=== PATIENT | male | born 1955 ===

== ENCOUNTER 2017-03-11 22:54 | Emergency (ER) | payer OTHER ==
[2017-03-11 23:18] VITALS: PULSE 71; RESP 17; TEMP 98.2; O2SAT 98
--- NOTE | 2017-03-12 00:32 | ED PDOC ---
HPI: Headache Time Seen by Provider: 03/11/17 23:45 Chief Complaint (Nursing): High Blood Pressure Chief Complaint (Provider): left sided headache and high bp History Per: Patient History/Exam Limitations: no limitations Onset/Duration Of Symptoms: Days Current Symptoms Are (Timing): Still Present Additional Complaint(s): 62yo male with PMHx including HTN, high cholesterol presents to the ED with c/o left sided headache and high bp since Saturday (2 days ago). Patient reports systolic bp has been in the 170s. Patient is concerned due to bp remaining high despite taking metoprolol. Denies chest pain, SOB, vomiting, dizziness. Past Medical History Reviewed: Historical Data, Nursing Documentation, Vital Signs Vital Signs: Last Vital Signs Temp 98.2 F 03/11/17 23:15 Pulse 71 03/11/17 23:15 Resp 17 03/11/17 23:15 BP 183/115 H 03/11/17 23:15 Pulse Ox 98 03/11/17 23:15 - Medical History PMH: HTN (no prescribed meds), Hypercholesterolemia Denies: HIV, Chronic Kidney Disease - Surgical History Surgical History: Hernia Repair - Family History Family History: States: No Known Family Hx - Social History Current smoker - smoking cessation education provided: No Alcohol: None Drugs: Denies - Home Medications Home Medications: Ambulatory Orders Medication Instructions Recorded Aspirin [Ecotrin] 81 mg PO DAILY #0 tabec 08/12/16 Atorvastatin [Lipitor] 20 mg PO HS #0 tab 08/12/16 Metoprolol Tartrate [Lopressor] 25 mg PO Q12 #0 tab 08/12/16 - Allergies Allergies/Adverse Reactions: Allergies Allergy/AdvReac Type Severity Reaction Status Date / Time Penicillins Allergy RASH Verified 08/11/16 18:12 Review of Systems ROS Statement: Except As Marked, All Systems Reviewed And Found Negative Cardiovascular: Positive for: Other (high bp ). Negative for: Chest Pain Respiratory: Negative for: Shortness of Breath Gastrointestinal: Negative for: Vomiting Neurological: Positive for: Headache. Negative for: Dizziness Physical Exam - Reviewed Nursing Documentation Reviewed: Yes Vital Signs Reviewed: Yes - Physical Exam Appears: Positive for: Well, No Acute Distress Head Exam: Positive for: ATRAUMATIC, NORMAL INSPECTION, NORMOCEPHALIC Skin: Positive for: Normal Color, Warm, Dry Eye Exam: Positive for: Normal appearance, EOMI, PERRL ENT: Positive for: Normal ENT Inspection Neck: Positive for: Normal, Painless ROM, Supple Cardiovascular/Chest: Positive for: Regular Rate, Rhythm. Negative for: Murmur , Tachycardia Respiratory: Positive for: Normal Breath Sounds. Negative for: Wheezing, Respiratory Distress Gastrointestinal/Abdominal: Positive for: Normal Exam, Soft. Negative for: Tenderness Back: Positive for: Normal Inspection. Negative for: L CVA Tenderness, R CVA Tenderness Extremity: Positive for: Normal ROM. 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 Negative for: Motor/Sensory Deficits, Aphasia, Facial Droop - ECG ECG: Positive for: Interpreted By Me, Viewed By Me ECG Rhythm: Positive for: Sinus Bradycardia (at 59 bpm, no ST elevations or depressions ) O2 Sat by Pulse Oximetry: 98 Pulse Ox Interpretation: Normal (RA) Medical Decision Making Medical Decision Makin: Impression: left sided headache and high bp Plan: CT head EKG Clonidine 0.2mg PO, Labetalol 100mg PO reassess 0146: CT head impression: No acute intracranial findings. Clinical correlation and followup is recommended as clinically warranted. 0200: Patient instructed to f/u w/ PCP in 1-2 days for further hypertension management. Repeat bp is 125/85. Explained results to patient and family who understand and agree. Instructed to return to the ED with any worsening or concerning symptoms. Scribe Attestation: Documented by Narciso Lopez acting as a scribe for Neida Kirby MD. Provider Scribe Attestation: All medical record entries made by the Scribe were at my direction and personally dictated by me. I have reviewed the chart and agree that the record accurately reflects my personal performance of the history, physical exam, medical decision making, and the department course for this patient. I have also personally directed, reviewed, and agree with the discharge instructions and disposition. Disposition - Clinical Impression Clinical Impression: Hypertension - Patient ED Disposition Is Patient to be Admitted: No Counseled Patient/Family Regarding: Studies Performed, Diagnosis, Need For Followup - Disposition Referrals: [facility] [Outside] [facility] [Outside] Disposition: Routine/Home Disposition Time: 01:45 Condition: IMPROVED Additional Instructions: follow up with your primary doctor in 1-2 days for further blood pressure management return to the ED with any worsening or concerning symptoms Instructions: Hypertension (ED) Print Language: KHMER
[2017-03-12 01:54] VITALS: BP 125/85
--- NOTE | 2017-03-12 09:22 | CT ---
PROCEDURE: CT HEAD WITHOUT CONTRAST. HISTORY: headache COMPARISON: 08/11/2016. TECHNIQUE: Axial computed tomography images were obtained through the head/brain without intravenous contrast. Radiation dose: Total exam DLP = 882.62 mGy-cm. This CT exam was performed using one or more of the following dose reduction techniques: Automated exposure control, adjustment of the mA and/or kV according to patient size, and/or use of iterative reconstruction technique. FINDINGS: HEMORRHAGE: No intracranial hemorrhage. BRAIN: No mass effect or edema. No atrophy or chronic microvascular ischemic changes. VENTRICLES: Unremarkable. No hydrocephalus. CALVARIUM: Unremarkable. PARANASAL SINUSES: Unremarkable as visualized. No significant inflammatory changes. MASTOID AIR CELLS: Unremarkable as visualized. No inflammatory changes. OTHER FINDINGS: None. IMPRESSION: No acute intracranial abnormalities. No significant findings to account for the clinical presentation. No significant interval change compared to the prior examination(s). Concordant results (preliminary interpretation) provided by [facility]. Procedure Completed: 01:25. Preliminary ([facility]) Report: Dictated and Authenticated: 01:46. Final Interpretation: 09:20. March 12, 2017.
--- NOTE | 2017-03-12 22:37 | CARD ---
APPROVED REPORT EKG Measurement Heart [id number] [id number] <Conclusion> Sinus bradycardia Otherwise normal ECG
== END 2017-03-12 02:34 | disposition home or self-care (01) ==
LOC: H.ER 22:54
DX: I10 Essential (primary) hypertension (principal); R51 Headache; Z79.82 Long term (current) use of aspirin; Z88.0 Allergy status to penicillin

== ENCOUNTER 2017-03-14 21:35 | Emergency (ER) | payer OTHER ==
[2017-03-14 21:57] VITALS: PULSE 76; RESP 20; TEMP 98.4; O2SAT 97
[2017-03-15 00:43] VITALS: BP 149/109
--- NOTE | 2017-03-15 06:30 | ED PDOC ---
HPI: Hypertension/Hypotension Time Seen by Provider: 03/15/17 00:07 Chief Complaint (Nursing): High Blood Pressure Chief Complaint (Provider): High Blood Pressure History Per: Patient History/Exam Limitations: no limitations Onset/Duration Of Symptoms: Days (x1day) Current Symptoms Are (Timing): Still Present Additional History Per: Patient Additional Complaint(s): David Bradley is a 62 year old male with a past medical history of HTN and hypercholesterolemia and a surgical history of a hernia repair who presents to the ED for a chief complaint of a headache along with high blood pressure onset x1day. Patient states he was seen in the ED 2 days ago for similar symptoms. Denies any nausea, vomiting, or visual disturbance. Patient take HTTZ 25mg and Toprol 100mg daily. Dr. Marshall is PCP. Past Medical History Reviewed: Historical Data, Nursing Documentation, Vital Signs Vital Signs: Last Vital Signs Temp 98.4 F 03/14/17 21:54 Pulse 76 03/14/17 21:54 Resp 20 03/14/17 21:54 BP 149/109 H 03/15/17 00:30 Pulse Ox 97 03/14/17 21:54 - Medical History PMH: HTN, Hypercholesterolemia Denies: HIV, Chronic Kidney Disease - Surgical History Surgical History: Hernia Repair - Family History Family History: States: No Known Family Hx - Home Medications Home Medications: Ambulatory Orders Medication Instructions Recorded Aspirin [Ecotrin] 81 mg PO DAILY #0 tabec 08/12/16 Atorvastatin [Lipitor] 20 mg PO HS #0 tab 08/12/16 Metoprolol Tartrate [Lopressor] 25 mg PO Q12 #0 tab 08/12/16 - Allergies Allergies/Adverse Reactions: Allergies Allergy/AdvReac Type Severity Reaction Status Date / Time Penicillins Allergy RASH Verified 08/11/16 18:12 Review of Systems ROS Statement: Except As Marked, All Systems Reviewed And Found Negative Constitutional: Negative for: Other (Headache) Cardiovascular: Negative for: Chest Pain Respiratory: Negative for: Cough, Shortness of Breath Gastrointestinal: Negative for: Vomiting Physical Exam - Reviewed Nursing Documentation Reviewed: Yes Vital Signs Reviewed: Yes - Physical Exam Appears: Positive for: Well, Non-toxic, No Acute Distress Head Exam: Positive for: ATRAUMATIC, NORMAL INSPECTION, NORMOCEPHALIC Skin: Positive for: Normal Color, Warm, Dry Eye Exam: Positive for: Normal appearance, EOMI, PERRL ENT: Positive for: Normal ENT Inspection Neck: Positive for: Normal, Painless ROM, Supple Cardiovascular/Chest: Positive for: Regular Rate, Rhythm. Negative for: Murmur , Tachycardia Respiratory: Positive for: Normal Breath Sounds. Negative for: Wheezing, Respiratory Distress Gastrointestinal/Abdominal: Positive for: Normal Exam, Soft. Negative for: Tenderness Male Genital Exam: Positive for: normal genitalia Back: Positive for: Normal Inspection Rectal: Positive for: Deferred Extremity: Positive for: Normal ROM Lymphatic: Positive for: Deferred Neurologic/Psych: Positive for: Alert, Oriented - ECG O2 Sat by Pulse Oximetry: 97 (RA) Pulse Ox Interpretation: Normal Medical Decision Making Medical Decision Makin: Initial Impression: Impression 62 year old male with headache setting of hypertension. Initial Plan: * CMP * CBC * PTT * Prothrombin Time * Heplock Insertion * Urinalysis Stat * Re-Eval Pt declines any testing as symptoms have resolved. He will continue current RX and maintain BP log to f/u with Dr Marshall in 2-3 days Dx Hypertension Stable Scribe~Attestation: Documented by Shelbi Caputo acting as a~scribe~for Lloyd Samano MD. ~ Provider~Scribe~Attestation: All medical record entries made by the~Scribe~were at my direction and personally dictated by me. I have reviewed the chart and agree that the record accurately reflects my personal performance of the history, physical exam, medical decision making, and the department course for this patient. I have also personally directed, reviewed, and agree with the discharge instructions and disposition. Disposition - Clinical Impression Clinical Impression: Hypertension - Disposition Referrals: Sumti Marshall MD [Primary Care Provider] - Disposition: Routine/Home Disposition Time: 01:00 Condition: STABLE Instructions: Chronic Hypertension (ED) Print Language: MALAGASY
== END 2017-03-15 00:45 | disposition home or self-care (01) ==
LOC: H.ER 21:35
DX: I10 Essential (primary) hypertension (principal)

== ENCOUNTER 2017-05-03 10:28 | Emergency (ER) | payer OTHER ==
[2017-05-03 10:32] VITALS: BP 159/88; PULSE 80; TEMP 97; BMI 32.5
[2017-05-03 10:40] VITALS: RESP 20; O2SAT 98
--- NOTE | 2017-05-03 10:49 | ED PDOC ---
Syncope/Near Syncope/Dizziness Time Seen by Provider: 05/03/17 10:40 Chief Complaint (Nursing): Dizziness/Lightheaded History Per: Patient Onset/Duration Of Symptoms: Hrs (1) Current Symptoms Are (Timing): Better Activity At Onset Of Symptoms: Other (working) Associated Symptoms Preceding Syncopal Episode: Lightheadedness Seizure Or Post-ictal Symptoms: None Possible Causative Factor(s): New Medications Fall Associated With With Symptoms: No Severity: Mild Pain Scale Rating Of: 1 Additional Complaint(s): Headache assoc with lightheadedness and palpitations while at work today. Denies weakness, parasthesias or LOC. Denies chest pain.Recent change in BP meds by PMD with elevated BP NIHSS Stroke Scale - How Severe is the Stroke Level of Consciousness: 0=Alert LOC to Questions: 0=Both comments correct LOC to commands: 0=Obeys both correctly Best Gaze: 0=Normal Visual: 0=No visual loss Facial: 0=Normal Motor Arm - Left: 0=No drift Motor Arm - Right: 0=No drift Motor Leg - Left: 0=No drift Motor Leg - Right: 0=No drift Limb Ataxia: 0=Absent Sensory: 0=Normal Best Language: 0=No aphasia Dysarthia: 0=Normal articulation Extinction & Inattention (Neglect): 0=Normal, no object Score: 0 Past Medical History Vital Signs: Last Vital Signs Temp 97 F L 05/03/17 10:31 Pulse 80 05/03/17 10:31 Resp 20 05/03/17 10:38 BP 159/88 H 05/03/17 10:31 Pulse Ox 98 05/03/17 10:38 - Medical History PMH: HTN, Hypercholesterolemia Denies: HIV, Chronic Kidney Disease - Surgical History Surgical History: Hernia Repair - Family History Family History: States: Unknown Family Hx - Home Medications Home Medications: Ambulatory Orders Medication Instructions Recorded Aspirin [Ecotrin] 81 mg PO DAILY #0 tabec 08/12/16 Atorvastatin [Lipitor] 20 mg PO HS #0 tab 08/12/16 Metoprolol Tartrate [Lopressor] 25 mg PO Q12 #0 tab 08/12/16 - Allergies Allergies/Adverse Reactions: Allergies Allergy/AdvReac Type Severity Reaction Status Date / Time Penicillins Allergy RASH Verified 05/03/17 10:38 Review of Systems ROS Statement: Except As Marked, All Systems Reviewed And Found Negative Cardiovascular: Positive for: Palpitations Neurological: Positive for: Headache, Dizziness Physical Exam - Reviewed Nursing Documentation Reviewed: Yes Vital Signs Reviewed: Yes - Physical Exam Appears: Positive for: Non-toxic, No Acute Distress Head Exam: Positive for: ATRAUMATIC, NORMAL INSPECTION, NORMOCEPHALIC Skin: Positive for: Normal Color, Warm, DRY Eye Exam: Positive for: EOMI, Normal appearance, PERRL ENT: Positive for: Normal ENT Inspection Neck: Positive for: Normal, Painless ROM Cardiovascular/Chest: Positive for: Regular Rate, Rhythm Respiratory: Positive for: CNT, Normal Breath Sounds Gastrointestinal/Abdominal: Positive for: Normal Exam, Bowel Sounds, Soft Back: Positive for: Normal Inspection Extremity: Positive for: Normal ROM Neurologic/Psych: Positive for: Alert, Oriented - Laboratory Results Result Diagrams: 05/03/17 11:24 05/03/17 11:24 - ECG O2 Sat by Pulse Oximetry: 98 Disposition - Clinical Impression Clinical Impression: Hypertension - Patient ED Disposition Is Patient to be Admitted: No - Disposition Referrals: Sumit Marshall MD [Family Provider] - Disposition: Routine/Home Disposition Time: 12:10 Condition: FAIR Instructions: Hypertension (ED)
[2017-05-03 11:36] LABS: BASO # 0.1 K/uL (0.0-0.2); BASO % 0.8 % (0.0-2.0); EOS # 0.7 K/uL (0.0-0.7); EOS % 12.1 % (0.0-4.0); HEMOGLOBIN 15.4 g/dL (12.0-18.0); LYMPH # 1.9 K/uL (1.0-4.3); LYMPH % 30.9 % (20.0-40.0); MEAN CELL VOLUME 93.7 fl (80.0-94.0); MEAN CORPUSCULAR HEMOGLOBIN 30.9 pg (27.0-31.0); MONO # 0.3 K/uL (0.0-0.8); MONO % 5.7 % (0.0-10.0); NEUT # 3.1 K/uL (1.8-7.0); NEUT % 50.5 % (50.0-75.0); RBC 4.99 Mil/uL (4.40-5.90); RED CELL DISTRIBUTION WIDTH 13.2 % (11.5-14.5); WHITE BLOOD COUNT 6.1 K/uL (4.8-10.8)
--- NOTE | 2017-05-03 11:52 | CT ---
PROCEDURE: CT HEAD WITHOUT CONTRAST. HISTORY: r/o bleed COMPARISON: 03/12/2017 TECHNIQUE: Axial computed tomography images were obtained through the head/brain without intravenous contrast. Radiation dose: Total exam DLP = 854.63 mGy-cm. This CT exam was performed using one or more of the following dose reduction techniques: Automated exposure control, adjustment of the mA and/or kV according to patient size, and/or use of iterative reconstruction technique. FINDINGS: HEMORRHAGE: No intracranial hemorrhage. BRAIN: Fields-white matter differentiation is preserved. There is no mass, mass effect or abnormal extra-axial fluid collection. There is no territorial infarction. There is normal density in the larger dural venous sinuses. VENTRICLES: There is mild global parenchymal volume loss and proportionate enlargement of the ventricles and cortical sulci. CALVARIUM: There is no calvarial fracture or extracranial soft tissue swelling. PARANASAL SINUSES: Predominantly clear. MASTOID AIR CELLS: Predominantly clear. OTHER FINDINGS: None. IMPRESSION: No acute intracranial abnormality. Mild age-related global parenchymal volume loss.
[2017-05-03 11:55] LABS: ALB/GLOB RATIO 1.5 (1.0-2.1); ALBUMIN 4.5 g/dL (3.5-5.0); ALT/SGPT 58 U/L (21-72); AST/SGOT 32 U/L (17-59); BLOOD UREA NITROGEN 17 mg/dl (9-20); CALCIUM 9.2 mg/dL (8.4-10.2); GFR AFRICAN-AMERICAN > 60; GFR NON-AFRICAN AMERICAN > 60
--- NOTE | 2017-05-03 18:28 | CARD ---
APPROVED REPORT EKG Measurement Heart [id number] <Conclusion> Normal sinus rhythm Normal ECG
== END 2017-05-03 12:47 | disposition home or self-care (01) ==
LOC: H.ER 10:28
DX: I10 Essential (primary) hypertension (principal); R42 Dizziness and giddiness; E78.00 Pure hypercholesterolemia, unspecified; Z79.82 Long term (current) use of aspirin; Z88.0 Allergy status to penicillin

== ENCOUNTER 2017-08-26 19:59 | Observation (INO) | payer OTHER ==
[2017-08-26 19:59] VITALS: BMI 32.5
[2017-08-26 21:38] LABS: BASO # 0.1 K/uL (0.0-0.2); EOS # 0.6 K/uL (0.0-0.7); EOS % 8.2 % (0.0-4.0); HEMATOCRIT 43.9 % (35.0-51.0); LYMPH # 1.4 K/uL (1.0-4.3); LYMPH % 17.9 % (20.0-40.0); MEAN CELL VOLUME 92.6 fl (80.0-94.0); MEAN CORPUSCULAR HGB CONC 33.5 g/dL (33.0-37.0); MEAN PLATELET VOLUME 8.3 fl (7.2-11.7); MONO # 0.6 K/uL (0.0-0.8); MONO % 7.3 % (0.0-10.0); NEUT # 5.2 K/uL (1.8-7.0); NEUT % 65.6 % (50.0-75.0); RED CELL DISTRIBUTION WIDTH 13.8 % (11.5-14.5); WHITE BLOOD COUNT 7.9 K/uL (4.8-10.8)
[2017-08-26 21:50] LABS: ALB/GLOB RATIO 1.3 (1.0-2.1); ALKALINE PHOSPHATASE 67 U/L (38-126); ALT/SGPT 36 U/L (21-72); AST/SGOT 24 U/L (17-59); BILIRUBIN,TOTAL 0.2 mg/dl (0.2-1.3); BLOOD UREA NITROGEN 19 mg/dl (9-20); CALCIUM 8.9 mg/dL (8.4-10.2); CARBON DIOXIDE 27 mmol/L (22-30); CHLORIDE 103 mmol/L (98-107); GFR AFRICAN-AMERICAN > 60; GLUCOSE,RANDOM 115 mg/dL (75-110); POTASSIUM 3.7 MMOL/L (3.6-5.0); SODIUM 137 mmol/l (132-148); TOTAL PROTEIN 7.2 G/DL (6.3-8.2)
[2017-08-26 22:03] LABS: URINE BILIRUBIN NEGATIVE (NEGATIVE); URINE BLOOD NEGATIVE (NEGATIVE); URINE COLOR STRAW (YELLOW); URINE GLUCOSE (UA) NEG (Normal); URINE KETONE NEGATIVE (NEGATIVE); URINE LEUKOCYTE ESTERASE NEG Leu/uL (Negative); URINE PROTEIN NEGATIVE (NEGATIVE); URINE UROBILINOGEN 0.2-1.0 mg/dL (0.2-1.0); WBC URINE < 1 /hpf (0-5)
[2017-08-26 22:04] LABS: RBC URINE 1 /hpf (0-3)
[2017-08-26 22:07] LABS: PARTIAL THROMBOPLASTIN TIME 31.9 Seconds (25.6-37.1)
--- NOTE | 2017-08-26 22:25 | ED PDOC ---
HPI: Hypertension/Hypotension Time Seen by Provider: 08/26/17 20:36 Chief Complaint (Nursing): High Blood Pressure Chief Complaint (Provider): High blood pressure History Per: Patient History/Exam Limitations: no limitations Associated Symptoms: Chest Pain, Dizziness. denies: Dyspnea, Blurred Vision, Focal Weakness, Headache Quality Of Symptoms: denies: Asymptomatic, Rapid Heart Rate, Irregular Heart Rate, Extra Beats, No Rhythm Irregularity Exacerbating Factor(s): Pos: None Additional Complaint(s): 62 yo M in ED for eval of high blood pressure dizziness (feels like the room is spinning with acute onsent today) and chest pain left sided intermittent lasting 1 min feels like a spasm without radiation to arm, neck x 1 week. denies diaphoresis, vision changes or abd pain. Past Medical History Reviewed: Historical Data, Nursing Documentation, Vital Signs Vital Signs: Last Vital Signs Temp 96.5 F L 08/26/17 20:24 Pulse 85 08/26/17 20:24 Resp 16 08/26/17 20:24 BP 174/95 H 08/26/17 20:24 Pulse Ox 96 08/26/17 20:24 - Medical History PMH: HTN, Hypercholesterolemia Denies: HIV, Chronic Kidney Disease - Surgical History Surgical History: Hernia Repair - Family History Family History: States: Unknown Family Hx - Home Medications Home Medications: Ambulatory Orders Medication Instructions Recorded Aspirin [Ecotrin] 81 mg PO DAILY #0 tabec 08/12/16 Atorvastatin [Lipitor] 20 mg PO HS #0 tab 08/12/16 Metoprolol Tartrate [Lopressor] 25 mg PO Q12 #0 tab 08/12/16 - Allergies Allergies/Adverse Reactions: Allergies Allergy/AdvReac Type Severity Reaction Status Date / Time Penicillins Allergy RASH Verified 08/26/17 20:24 Review of Systems ROS Statement: Except As Marked, All Systems Reviewed And Found Negative Constitutional: Negative for: Fever, Chills Cardiovascular: Positive for: Chest Pain Musculoskeletal: Negative for: Shoulder Pain Neurological: Positive for: Dizziness Physical Exam - Reviewed Nursing Documentation Reviewed: Yes Vital Signs Reviewed: Yes - Physical Exam Appears: Positive for: Well, Non-toxic, No Acute Distress Skin: Positive for: Normal Color, Warm, DRY Eye Exam: Positive for: EOMI, Normal appearance, PERRL Cardiovascular/Chest: Positive for: Regular Rate, Rhythm. Negative for: Chest Non Tender, Murmur, Bradycardia, Tachycardia Respiratory: Positive for: CNT, Normal Breath Sounds Gastrointestinal/Abdominal: Positive for: Normal Exam, Bowel Sounds, Soft. Negative for: Tenderness Back: Positive for: Normal Inspection Extremity: Positive for: Normal ROM Neurologic/Psych: Positive for: Alert, Oriented - Laboratory Results Result Diagrams: 08/26/17 21:32 08/26/17 21:32 - ECG O2 Sat by Pulse Oximetry: 96 - Radiology X-Ray: Interpreted by Me X-Ray Interpretation: No Acute Disease - Progress ED Course And Treament: Orders Category Date Time Status ELECTROCARDIOGRAM Stat Cardiology 08/26/17 21:14 Ordered B-TYPE NATRIURETIC PEPTIDE Stat Chem 08/26/17 21:32 Completed COMP METABOLIC PANEL Stat Chem 08/26/17 21:32 Completed TROPONIN I Stat Chem 08/26/17 21:32 Completed EKG-ED [EDNURTX] STAT ED Care 08/26/17 21:15 Active CHEST TWO VIEWS (PA/LAT) [RAD] Stat Exams 08/26/17 21:15 Ordered CBC (WITH DIFFERENTIAL) Stat SKYLA 08/26/17 21:32 Completed PARTIAL THROMBOPLASTIN TIME [COAG] Stat SKYLA 08/26/17 21:32 Completed PROTHROMBIN TIME [COAG] Stat SKYLA 08/26/17 21:32 Completed Famotidine [Pepcid] Med 08/26/17 21:49 Discontinued 40 mg .ROUTE .STK-MED ONE Famotidine [Pepcid] Med 08/26/17 21:14 Discontinued 40 mg IVP 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 08/26/17 21:14 Active IV Insertion (Saline Lock) ONCE NURSING 08/26/17 21:14 Active URINALYSIS Stat URINALYSIS 08/26/17 21:45 Completed 08/26/17 08/26/17 08/26/17 21:45 21:32 21:32 WBC RBC Hgb Hct MCV MCH MCHC RDW Plt Count MPV Neut % (Auto) Lymph % (Auto) [place] % (Auto) Eos % (Auto) Baso % (Auto) Neut # Lymph # [place] # Eos # Baso # PT 10.5 INR 0.9 APTT 31.9 Sodium 137 Potassium 3.7 Chloride 103 Carbon Dioxide 27 Anion Gap 10 BUN 19 Creatinine 1.1 Est GFR ( Amer) > 60 Est GFR (Non-Af Amer) > 60 Random Glucose 115 H Calcium 8.9 Total Bilirubin 0.2 AST 24 ALT 36 Alkaline Phosphatase 67 Troponin I < 0.0120 NT-Pro-B Natriuret Pep 71.8 Total Protein 7.2 Albumin 4.1 Globulin 3.1 Albumin/Globulin Ratio 1.3 Urine Color Straw Urine Clarity Clear Urine pH 6.0 Ur Specific [place] 1.009 Urine Protein Negative Urine Glucose (UA) Neg Urine Ketones Negative Urine Blood Negative Urine Nitrate Negative Urine Bilirubin Negative Urine Urobilinogen 0.2-1.0 Ur Leukocyte Esterase Neg Urine RBC (Auto) 1 Urine Microscopic WBC < 1 08/26/17 21:32 WBC 7.9 RBC 4.74 Hgb 14.7 Hct 43.9 MCV 92.6 MCH 31.0 MCHC 33.5 RDW 13.8 Plt Count 222 MPV 8.3 Neut % (Auto) 65.6 Lymph % (Auto) 17.9 L [place] % (Auto) 7.3 Eos % (Auto) 8.2 H Baso % (Auto) 1.0 Neut # 5.2 Lymph # 1.4 [place] # 0.6 Eos # 0.6 Baso # 0.1 PT INR APTT Sodium Potassium Chloride Carbon Dioxide Anion Gap BUN Creatinine Est GFR ( Amer) Est GFR (Non-Af Amer) Random Glucose Calcium Total Bilirubin AST ALT Alkaline Phosphatase Troponin I NT-Pro-B Natriuret Pep Total Protein Albumin Globulin Albumin/Globulin Ratio Urine Color Urine Clarity Urine pH Ur Specific [place] Urine Protein Urine Glucose (UA) Urine Ketones Urine Blood Urine Nitrate Urine Bilirubin Urine Urobilinogen Ur Leukocyte Esterase Urine RBC (Auto) Urine Microscopic WBC Medical Decision Making Medical Decision Making: PMD:MD dg PT will be admitted for Chest pain observation for repeat labs in the AM-pt has risk factors and symptomatic/ Hypertensive Disposition - Clinical Impression Clinical Impression: Chest pain - Patient ED Disposition Is Patient to be Admitted: Yes - Disposition Disposition Time: 22:43 Condition: FAIR Forms: [employer] (Eritrean) - Pt Status Changed To: Hospital Disposition Of: Observation
--- NOTE | 2017-08-26 22:52 | CP.PCM.HP ---
<Krystal Thomas - Last Filed: 08/26/17 23:15> History of Present Illness - History of Present Illness History of Present Illness: 62yo M with PMHx HTN, HLD, CVA admitted for chest pain. Chest pain x3 day, not dull/sharp, left chest wall, intermittent, no radiation, nothing makes it better /worse, a/w elevated BP reading at home today. Denies fever/chills, nausea, vomiting, change of vision, dizziness, lightheadedness, SOB, HOP[place], abdominal pain. FHx significant for CAD. ECHO 03/29/15 LVEF 55-60%, trace MR Stress test 03/31/15 WNL PMHx: HTN, HLD, CVA Meds: Lipitor-HCTZ 10-12.5, atorvastatin 20, ASA 81 Allergies: PCN - rash/GI distress Family Hx: Mother HTN, Father CAD with pacemaker Surgeries: B/L inguinal hernia repair and hiatal/ventral hernia repair Social Hx: Former smoker 10 pack yrs, quit >20 yrs ago. EtOH occasionally, denies drug use PMD: Dr. Mujica ED course CBC, CMP, troponin, proBNP, UA, PT/PTT CXR EKG pepcid 40 IV Present on Admission - Present on Admission Any Indicators Present on Admission: No Review of Systems - Review of Systems All systems: reviewed and no additional remarkable complaints except - Cardiovascular Cardiovascular: Chest Pain Past Patient History - Past Medical History & Family History Past Medical History?: Yes - Past Social History Smoking Status: Former Smoker - CARDIAC Hx Hypercholesterolemia: Yes Hx Hypertension: Yes - PULMONARY Hx Respiratory Disorders: No - NEUROLOGICAL Hx Neurological Disorder: No - HEENT Hx HEENT Problems: No - RENAL Hx Chronic Kidney Disease: No - ENDOCRINE/METABOLIC Hx Endocrine Disorders: No - HEMATOLOGICAL/ONCOLOGICAL Hx Human Immunodeficiency Virus (HIV): No - INTEGUMENTARY Hx Dermatological Problems: No - MUSCULOSKELETAL/RHEUMATOLOGICAL Hx Musculoskeletal Disorders: No Hx Falls: No - GASTROINTESTINAL Hx Gastrointestinal Disorders: No - GENITOURINARY/GYNECOLOGICAL Hx Genitourinary Disorders: No - PSYCHIATRIC Hx Psychophysiologic Disorder: No Hx Substance Use: No - SURGICAL HISTORY Hx Surgeries: Yes Hx Herniorrhaphy: Yes (ventral x1 and B/L inguinal hernia repairs) - ANESTHESIA Hx Anesthesia: Yes Meds Allergies/Adverse Reactions: Allergies Allergy/AdvReac Type Severity Reaction Status Date / Time Penicillins Allergy RASH Verified 10/30/17 20:24 Physical Exam - Constitutional Appears: Non-toxic, No Acute Distress - Head Exam Head Exam: ATRAUMATIC, NORMOCEPHALIC - Eye Exam Eye Exam: Normal appearance - ENT Exam ENT Exam: Mucous Membranes Moist - Neck Exam Neck exam: Positive for: Full Rom, Normal Inspection - Respiratory Exam Respiratory Exam: Clear to Auscultation Bilateral, NORMAL BREATHING PATTERN - Cardiovascular Exam Cardiovascular Exam: REGULAR RHYTHM. absent: Systolic Murmur - GI/Abdominal Exam GI & Abdominal Exam: Normal Bowel Sounds, Soft. absent: Tenderness - Extremities Exam Extremities exam: Positive for: normal inspection. Negative for: pedal edema - Back Exam Back exam: NORMAL INSPECTION. absent: vertebral tenderness - Neurological Exam Neurological exam: Alert, Oriented x3 - Skin Skin Exam: Dry, Warm Results - Vital Signs Recent Vital Signs: Last Vital Signs Temp 96.5 F L 08/26/17 20:24 Pulse 85 08/26/17 20:24 Resp 16 08/26/17 20:24 BP 174/95 H 08/26/17 20:24 Pulse Ox 96 08/26/17 22:43 - Labs Result Diagrams: 08/26/17 21:32 08/26/17 21:32 Labs: Laboratory Results - last 24 hr 08/26/17 08/26/17 08/26/17 21:32 21:32 21:32 WBC 7.9 RBC 4.74 Hgb 14.7 Hct 43.9 MCV 92.6 MCH 31.0 MCHC 33.5 RDW 13.8 Plt Count 222 MPV 8.3 Neut % (Auto) 65.6 Lymph % (Auto) 17.9 L [place] % (Auto) 7.3 Eos % (Auto) 8.2 H Baso % (Auto) 1.0 Neut # 5.2 Lymph # 1.4 [place] # 0.6 Eos # 0.6 Baso # 0.1 PT 10.5 INR 0.9 APTT 31.9 Sodium 137 Potassium 3.7 Chloride 103 Carbon Dioxide 27 Anion Gap 10 BUN 19 Creatinine 1.1 Est GFR ( Amer) > 60 Est GFR (Non-Af Amer) > 60 Random Glucose 115 H Calcium 8.9 Total Bilirubin 0.2 AST 24 ALT 36 Alkaline Phosphatase 67 Troponin I < 0.0120 NT-Pro-B Natriuret Pep 71.8 Total Protein 7.2 Albumin 4.1 Globulin 3.1 Albumin/Globulin Ratio 1.3 Urine Color Urine Clarity Urine pH Ur Specific [place] Urine Protein Urine Glucose (UA) Urine Ketones Urine Blood Urine Nitrate Urine Bilirubin Urine Urobilinogen Ur Leukocyte Esterase Urine RBC (Auto) Urine Microscopic WBC 08/26/17 21:45 WBC RBC Hgb Hct MCV MCH MCHC RDW Plt Count MPV Neut % (Auto) Lymph % (Auto) [place] % (Auto) Eos % (Auto) Baso % (Auto) Neut # Lymph # [place] # Eos # Baso # PT INR APTT Sodium Potassium Chloride Carbon Dioxide Anion Gap BUN Creatinine Est GFR ( Amer) Est GFR (Non-Af Amer) Random Glucose Calcium Total Bilirubin AST ALT Alkaline Phosphatase Troponin I NT-Pro-B Natriuret Pep Total Protein Albumin Globulin Albumin/Globulin Ratio Urine Color Straw Urine Clarity Clear Urine pH 6.0 Ur Specific [place] 1.009 Urine Protein Negative Urine Glucose (UA) Neg Urine Ketones Negative Urine Blood Negative Urine Nitrate Negative Urine Bilirubin Negative Urine Urobilinogen 0.2-1.0 Ur Leukocyte Esterase Neg Urine RBC (Auto) 1 Urine Microscopic WBC < 1 Assessment & Plan - Assessment and Plan (Free Text) Assessment: 62yo M with PMHx HTN, HLD, CVA admitted for chest pain. chest pain -r/o ACS -trend troponin -pain control, nitro SL -O2 prn -ASA HTN -c/w home med HLD -c/w home med DVT ppx -lovenox Decision To Admit - Pt Status Changed To: Hospital Disposition Of: Observation - . Bed Request Type: Telemetry Admitting Physician: Sumit Mujica <Sumit Mujica - Last Filed: 08/28/17 07:03> Results - Vital Signs Recent Vital Signs: Last Vital Signs Temp 98.2 F 08/27/17 15:37 Pulse 70 08/27/17 15:37 Resp 18 08/27/17 15:37 BP 123/73 08/27/17 15:37 Pulse Ox 95 08/27/17 15:37 - Labs Result Diagrams: 08/26/17 21:32 08/27/17 04:20 Labs: Laboratory Results - last 24 hr 08/27/17 08/27/17 08/27/17 04:20 04:20 14:10 Sodium 138 Potassium 3.7 Chloride 104 Carbon Dioxide 26 Anion Gap 12 BUN 17 Creatinine 1.0 Est GFR ( Amer) > 60 Est GFR (Non-Af Amer) > 60 Random Glucose 120 H Hemoglobin A1c 7.2 H Calcium 8.8 Total Bilirubin 0.5 AST 24 ALT 36 Alkaline Phosphatase 55 Troponin I < 0.0120 < 0.0120 Total Protein 6.9 Albumin 3.8 Globulin 3.0 Albumin/Globulin Ratio 1.3 Triglycerides 95 D Cholesterol 184 LDL Cholesterol Direct 111 HDL Cholesterol 48 TSH 3rd Generation 2.08 Attending/Attestation - Attestation I have personally seen and examined this patient.: Yes I have fully participated in the care of the patient.: Yes I have reviewed all pertinent clinical information: Yes
[2017-08-27 01:23] VITALS: RESP 18
--- NOTE | 2017-08-27 07:06 | RAD ---
HISTORY: Chest pain and hypertension COMPARISON: 08/11/2016 TECHNIQUE: Chest PA and lateral FINDINGS: LUNGS: No active pulmonary disease. PLEURA: No significant pleural effusion identified. No pneumothorax apparent. CARDIOVASCULAR: No radiographic findings to suggest acute or significant cardiovascular disease. OSSEOUS STRUCTURES: No significant abnormalities. VISUALIZED UPPER ABDOMEN: Normal. OTHER FINDINGS: None. IMPRESSION: No active disease. No significant interval change compared to the prior examination(s). Please note: No preliminary interpretation of this examination rendered by emergency department personnel (Physician and/or PA declined to provide preliminary report of their findings/ observations).
[2017-08-27 07:24] LABS: ALB/GLOB RATIO 1.3 (1.0-2.1); ALKALINE PHOSPHATASE 55 U/L (38-126); ALT/SGPT 36 U/L (21-72); AST/SGOT 24 U/L (17-59); BILIRUBIN,TOTAL 0.5 mg/dl (0.2-1.3); BLOOD UREA NITROGEN 17 mg/dl (9-20); CALCIUM 8.8 mg/dL (8.4-10.2); CARBON DIOXIDE 26 mmol/L (22-30); CHLORIDE 104 mmol/L (98-107); CHOLESTEROL 184 mg/dL (0-199); GFR AFRICAN-AMERICAN > 60; GLUCOSE,RANDOM 120 mg/dL (75-110); POTASSIUM 3.7 MMOL/L (3.6-5.0); SODIUM 138 mmol/l (132-148); TOTAL PROTEIN 6.9 G/DL (6.3-8.2)
[2017-08-27 07:44] LABS: THYROID STIMULATING HORMONE 2.08 mIU/ML (0.46-4.68)
[2017-08-27] MEDS ORDERED: Influenza Vaccine 18yr & older 0.5 ML/45 MCG SYR IM ONE (09:00)
[2017-08-27] MEDS ORDERED: Pneumococcal 23-Valent Vaccine IM ONE (09:00)
[2017-08-27] MEDS ORDERED: Enoxaparin 40 mg Syringe SC SCH (09:00)
--- NOTE | 2017-08-27 10:51 | CARD ---
APPROVED REPORT EKG Measurement Heart [id number] CT 142P44 [id number] <Conclusion> Normal sinus rhythm Normal ECG
[2017-08-27 15:38] VITALS: BP 123/73; PULSE 70; TEMP 98.2; O2SAT 95
--- NOTE | 2017-08-27 15:50 | CP.PCM.DIS ---
<Saturnino Becerril - Last Filed: 08/27/17 15:48> Provider - Provider Date of Admission: 08/26/17 23:09 Attending physician: Sumit Marshall MD Time Spent in preparation of Discharge (in minutes): 35 Diagnosis - Discharge Diagnosis (1) Atypical chest pain Status: Acute Hospital Course - Lab Results Lab Results: Most Recent Lab Values WBC 7.9 K/uL (4.8-10.8) 08/26/17 21: RBC 4.74 Mil/uL (4.40-5.90) 08/26/17 21:32 Hgb 14.7 g/dL (12.0-18.0) 08/26/17 21:32 Hct 43.9 % (35.0-51.0) 08/26/17 21:32 MCV 92.6 fl (80.0-94.0) 08/26/17 21:32 MCH 31.0 pg (27.0-31.0) 08/26/17:32 MCHC 33.5 g/dL (33.0-37.0) 08/26/17 21:32 RDW 13.8 % (11.5-14.5) 08/26/17 21:32 Plt Count 222 K/uL (130-400) 08/26/17 21:32 MPV 8.3 fl (7.2-11.7) 08/26/17 21:32 Neut % (Auto) 65.6 % (50.0-75.0) 08/26/17 21:32 Lymph % (Auto) 17.9 % (20.0-40.0) L 08/26/17 21:32 [place] % (Auto) 7.3 % (0.0-10.0) 08/26/17 21:32 Eos % (Auto) 8.2 % (0.0-4.0) H 08/26/17:32 Baso % (Auto) 1.0 % (0.0-2.0) 08/26/17 21:32 Neut # 5.2 K/uL (1.8-7.0) 08/26/17 21:32 Lymph # 1.4 K/uL (1.0-4.3) 08/26/17 21:32 [place] # 0.6 K/uL (0.0-0.8) 08/26/17 21:32 Eos # 0.6 K/uL (0.0-0.7) 08/26/17 21:32 Baso # 0.1 K/uL (0.0-0.2) 08/26/17 21:32 PT 10.5 Seconds (9.8-13.1) 08/26/17 21:32 INR 0.9 (0.9-1.2) 08/26/17 21:32 APTT 31.9 Seconds (25.6-37.1) 08/26/17 21:32 Sodium 138 mmol/l (132-148) 08/27/17 04:20 Potassium 3.7 MMOL/L (3.6-5.0) 08/27/17 04:20 Chloride 104 mmol/L (98-107) 08/27/17 04:20 Carbon Dioxide 26 mmol/L (22-30) 08/27/17 04:20 Anion Gap 12 (10-20) 08/27/17 04:20 BUN 17 mg/dl (9-20) 08/27/17 04:20 Creatinine 1.0 mg/dL (0.8-1.5) 08/27/17 04:20 Est GFR ( Amer) > 60 08/27/17 04:20 Est GFR (Non-Af Amer) > 60 08/27/17 04:20 Random Glucose 120 mg/dL (75-110) H 08/27/17 04:20 Hemoglobin A1c 7.2 % (4.2-6.5) H 08/27/17 04:20 Calcium 8.8 mg/dL (8.4-10.2) 08/27/17 04:20 Total Bilirubin 0.5 mg/dl (0.2-1.3) 08/27/17 04:20 AST 24 U/L (17-59) 08/27/17 04:20 ALT 36 U/L (21-72) 08/27/17 04:20 Alkaline Phosphatase 55 U/L (38-126) 08/27/17 04:20 Troponin I < 0.0120 ng/mL (0.00-0.120) 08/27/17 14:10 NT-Pro-B Natriuret Pep 71.8 pg/ml (0-900) 08/26/17 21:32 Total Protein 6.9 G/DL (6.3-8.2) 08/27/17 04:20 Albumin 3.8 g/dL (3.5-5.0) 08/27/17 04:20 Globulin 3.0 gm/dL (2.2-3.9) 08/27/17 04:20 Albumin/Globulin Ratio 1.3 (1.0-2.1) 08/27/17 04:20 Triglycerides 95 mg/DL (0-149) D 08/27/17 04:20 Cholesterol 184 mg/dL (0-199) 08/27/17 04:20 LDL Cholesterol Direct 111 mg/dL (0-129) 08/27/17 04:20 HDL Cholesterol 48 MG/DL (30-70) 08/27/17 04:20 TSH 3rd Generation 2.08 mIU/ML (0.46-4.68) 08/27/17 04:20 Urine Color Straw (YELLOW) 08/26/17 21:45 Urine Clarity Clear (Clear) 08/26/17 21:45 Urine pH 6.0 (5.0-8.0) 08/26/17 21:45 Ur Specific [place] 1.009 (1.003-1.030) 08/26/17 21:45 Urine Protein Negative mg/dL (NEGATIVE) 08/26/17 21:45 Urine Glucose (UA) Neg mg/dL (Normal) 08/26/17 21:45 Urine Ketones Negative mg/dL (NEGATIVE) 08/26/17 21:45 Urine Blood Negative (NEGATIVE) 08/26/17 21:45 Urine Nitrate Negative (NEGATIVE) 08/26/17 21:45 Urine Bilirubin Negative (NEGATIVE) 08/26/17 21:45 Urine Urobilinogen 0.2-1.0 mg/dL (0.2-1.0) 08/26/17 21:45 Ur Leukocyte Esterase Neg Edilberto/uL (Negative) 08/26/17 21:45 Urine RBC (Auto) 1 /hpf (0-3) 08/26/17 21:45 Urine Microscopic WBC < 1 /hpf (0-5) 08/26/17 21:45 - Hospital Course Hospital Course: pt presented with chest pain. EKG negative, placed to tele. No overnight events. Remained stable, Troponins Q8H were negative x3. Pt reported improvement.After an uneventful hospital stay he was discharged in stable condition. Discharge Exam - Head Exam Head Exam: ATRAUMATIC, NORMOCEPHALIC - Eye Exam Eye Exam: EOMI Pupil Exam: PERRL - ENT Exam ENT Exam: Mucous Membranes Moist - Respiratory Exam Respiratory Exam: Clear to PA & Lateral, NORMAL BREATHING PATTERN, UNREMARKABLE. absent: Rhonchi, Wheezes - Cardiovascular Exam Cardiovascular Exam: REGULAR RHYTHM, +S1, +S2 - GI/Abdominal Exam GI & Abdominal Exam: Normal Bowel Sounds, Unremarkable Discharge Plan - Follow Up Plan Condition: STABLE Disposition: HOME/ ROUTINE Instructions: Angina (DC), Chest Pain (GEN) Additional Instructions: f/u with Dr. Marshall within a week <Davian Aguero - Last Filed: 08/29/17 06:39> Provider - Provider Date of Admission: 08/26/17 23:09 Attending physician: Sumti Marshall MD Hospital Course - Lab Results Lab Results: Most Recent Lab Values WBC 7.9 K/uL (4.8-10.8) 08/26/17 21:32 RBC 4.74 Mil/uL (4.40-5.90) 08/26/17 21:32 Hgb 14.7 g/dL (12.0-18.0) 08/26/17 21:32 Hct 43.9 % (35.0-51.0) 08/26/17 21:32 MCV 92.6 fl (80.0-94.0) 08/26/17 21:32 MCH 31.0 pg (27.0-31.0) 08/26/17 21:32 MCHC 33.5 g/dL (33.0-37.0) 08/26/17 21:32 RDW 13.8 % (11.5-14.5) 08/26/17 21:32 Plt Count 222 K/uL (130-400) 08/26/17 21:32 MPV 8.3 fl (7.2-11.7) 08/26/17 21:32 Neut % (Auto) 65.6 % (50.0-75.0) 08/26/17 21:32 Lymph % (Auto) 17.9 % (20.0-40.0) L 08/26/17 21:32 [place] % (Auto) 7.3 % (0.0-10.0) 08/26/17 21:32 Eos % (Auto) 8.2 % (0.0-4.0) H 08/26/17 21:32 Baso % (Auto) 1.0 % (0.0-2.0) 08/26/17 21:32 Neut # 5.2 K/uL (1.8-7.0) 08/26/17 21:32 Lymph # 1.4 K/uL (1.0-4.3) 08/26/17 21:32 [place] # 0.6 K/uL (0.0-0.8) 08/26/17 21:32 Eos # 0.6 K/uL (0.0-0.7) 08/26/17 21:32 Baso # 0.1 K/uL (0.0-0.2) 08/26/17 21:32 PT 10.5 Seconds (9.8-13.1) 08/26/17 21:32 INR 0.9 (0.9-1.2) 08/26/17 21:32 APTT 31.9 Seconds (25.6-37.1) 08/26/17 21:32 Sodium 138 mmol/l (132-148) 08/27/17 04:20 Potassium 3.7 MMOL/L (3.6-5.0) 08/27/17 04:20 Chloride 104 mmol/L (98-107) 08/27/17 04:20 Carbon Dioxide 26 mmol/L (22-30) 08/27/17 04:20 Anion Gap 12 (10-20) 08/27/17 04:20 BUN 17 mg/dl (9-20) 08/27/17 04:20 Creatinine 1.0 mg/dL (0.8-1.5) 08/27/17 04:20 Est GFR ( Amer) > 60 08/27/17 04:20 Est GFR (Non-Af Amer) > 60 08/27/17 04:20 Random Glucose 120 mg/dL (75-110) H 08/27/17 04:20 Hemoglobin A1c 7.2 % (4.2-6.5) H 08/27/17 04:20 Calcium 8.8 mg/dL (8.4-10.2) 08/27/17 04:20 Total Bilirubin 0.5 mg/dl (0.2-1.3) 08/27/17 04:20 AST 24 U/L (17-59) 08/27/17 04:20 ALT 36 U/L (21-72) 08/27/17 04:20 Alkaline Phosphatase 55 U/L (38-126) 08/27/17 04:20 Troponin I < 0.0120 ng/mL (0.00-0.120) 08/27/17 14:10 NT-Pro-B Natriuret Pep 71.8 pg/ml (0-900) 08/26/17 21:32 Total Protein 6.9 G/DL (6.3-8.2) 08/27/17 04:20 Albumin 3.8 g/dL (3.5-5.0) 08/27/17 04:20 Globulin 3.0 gm/dL (2.2-3.9) 08/27/17 04:20 Albumin/Globulin Ratio 1.3 (1.0-2.1) 08/27/17 04:20 Triglycerides 95 mg/DL (0-149) D 08/27/17 04:20 Cholesterol 184 mg/dL (0-199) 08/27/17 04:20 LDL Cholesterol Direct 111 mg/dL (0-129) 08/27/17 04:20 HDL Cholesterol 48 MG/DL (30-70) 08/27/17 04:20 TSH 3rd Generation 2.08 mIU/ML (0.46-4.68) 08/27/17 04:20 Urine Color Straw (YELLOW) 08/26/17 21:45 Urine Clarity Clear (Clear) 08/26/17 21:45 Urine pH 6.0 (5.0-8.0) 08/26/17 21:45 Ur Specific [place] 1.009 (1.003-1.030) 08/26/17 21:45 Urine Protein Negative mg/dL (NEGATIVE) 08/26/17 21:45 Urine Glucose (UA) Neg mg/dL (Normal) 08/26/17 21:45 Urine Ketones Negative mg/dL (NEGATIVE) 08/26/17 21:45 Urine Blood Negative (NEGATIVE) 08/26/17 21:45 Urine Nitrate Negative (NEGATIVE) 08/26/17 21:45 Urine Bilirubin Negative (NEGATIVE) 08/26/17 21:45 Urine Urobilinogen 0.2-1.0 mg/dL (0.2-1.0) 08/26/17 21:45 Ur Leukocyte Esterase Neg Edilberto/uL (Negative) 08/26/17 21:45 Urine RBC (Auto) 1 /hpf (0-3) 08/26/17 21:45 Urine Microscopic WBC < 1 /hpf (0-5) 08/26/17 21:45 Attending/Attestation - Attestation I have personally seen and examined this patient.: Yes I have fully participated in the care of the patient.: Yes I have reviewed all pertinent clinical information, including history, physical exam and plan: Yes
== END 2017-08-27 16:15 | disposition home or self-care (01) ==
LOC: H.ER 19:59 → H.ERHOLD 23:09 → H.TEL 08-27 01:41
PROVIDERS: ADMIT Family Medicine; ATTEND Family Medicine
DX: R07.89 Other chest pain (principal); I10 Essential (primary) hypertension; E78.5 Hyperlipidemia, unspecified; Z79.82 Long term (current) use of aspirin; Z23 Encounter for immunization; Z86.73 Personal history of transient ischemic attack (TIA), and cerebral infarction without residual deficits; Z87.891 Personal history of nicotine dependence; Z88.0 Allergy status to penicillin; Z82.49 Family history of ischemic heart disease and other diseases of the circulatory system
CPT/HCPCS: 36415; 71020; 80053; 80061; 81003; 83036; 83880; 84443; 84484; 85025; 85610; 85730; 90471; 90732; 93005; 96374; 99285; G0378; J1650; Q2035